=== PATIENT | male | born 1935 | race Caucasian/White ===

== ENCOUNTER 2017-05-21 11:19 | Day surgery (SDC) | payer MEDICARE, OTHER ==
--- NOTE | 2017-05-20 07:58 | HP ---
DATE OF SURGERY: 05/21/2017 ADMISSION DIAGNOSIS: Persistent hemorrhoids. ANTICIPATED PROCEDURE: Hemorrhoidectomy. HISTORY OF PRESENT ILLNESS: The patient has had hemorrhoids for about a year. He almost considered surgical intervention but they got a little better. He has been fighting these. He is basically refractory to medical care. He presents for hemorrhoidectomy. PAST MEDICAL HISTORY: ALLERGIES: NONE. MEDICATIONS: None. PAST SURGICAL HISTORY: Prostate. SOCIAL HISTORY: Negative. FAMILY HISTORY: Negative. REVIEW OF SYSTEMS: Negative. PHYSICAL EXAMINATION: VITAL SIGNS: Normal. CHEST: Clear. COR: Regular. IMPRESSION: Severe hemorrhoids refractory to care. PLAN: Hemorrhoidectomy.
[~2017-05-21 11:19] MED LIST: ANUSOL-HC 2.5% CREAM 30 GM ONE; DIPRIVAN 200 MG/20 ML IV ONE; Decadron 4 MG INJ IV ONE; Lactated Ringers 1,000 ML IV ONE; Lactated Ringers 1,000 ML IV SCH; MEFOXIN 2 GM PREMIX** 2 GM/50 ML ML IV ONE; Quelicin Fliptop 200 MG/10 ML IJ ONE; SUBLIMAZE 100 MCG/2 ML IV ONE; TORAdol 30 mg Injection IJ ONE; Zofran 4 MG/2 ML VIAL IV ONE
[2017-05-21] MEDS ORDERED: Lactated Ringers 1,000 ML IV ONE (11:32)
[2017-05-21] MEDS ORDERED: MEFOXIN 2 GM PREMIX** 2 GM/50 ML ML IV ONE (11:35)
[2017-05-21 15:31] VITALS: O2SAT 96
[2017-05-21 15:34] VITALS: BP 128/73; PULSE 59
--- NOTE | 2017-05-22 07:35 | OP ---
SURGERY DATE/TIME: 05/21/2017 1305 PREOPERATIVE DIAGNOSIS: Hemorrhoids persistent. POSTOPERATIVE DIAGNOSIS: Two internal hemorrhoids, three external hemorrhoids. There was an old fissure although it was mucosalized and grossly healed. PROCEDURE: Exam under anesthesia with open external hemorrhoidectomy x3, rubber band ligature internal hemorrhoids x2. SURGEON: Salo Castro M.D. ANESTHESIA: General. COMPLICATIONS: None. CONDITION: Stable. INDICATION: A patient requiring hemorrhoidectomy. DESCRIPTION OF PROCEDURE: Taken to surgery. Lithotomy. Routine prep and drape. Exam under anesthesia there was an old fissure at 6:00 which was mucosalized, was peeled. It was about 1/2 inch wide by 3/4 inch tall. There was external hemorrhoid on both sides of this taken with curved clamp and under and over suture #2-0 chromic catgut after the excess hemorrhoidal tissue had been excised. These two externals had been taken. There was an external at 11:00 that was taken openly and then there was two internals that were banded. The patient tolerated the procedure satisfactorily. Allowed two fingers at the termination and Exparel was injected 20 cc around the entire perimeter both to fistula and deep.
== END 2017-05-21 15:15 | disposition home or self-care (01) ==
LOC: SDC 11:19
PROVIDERS: ATTEND Surgery
PROC: 06LY4CC Occlusion of Hemorrhoidal Plexus with Extraluminal Device, Percutaneous Endoscopic Approach (ICD-10-PCS; principal; 2017-05-21)
PROC: 0DBQXZZ Excision of Anus, External Approach (ICD-10-PCS; 2017-05-21)
DX: K64.8 Other hemorrhoids (principal); K64.4 Residual hemorrhoidal skin tags
CPT/HCPCS: 00902; 36415; 46221; 88304; 99100; J0330; J0694; J1100; J1885; J2405; J2704; J3010; A9270-GY

== ENCOUNTER 2018-01-07 08:53 | Emergency (ER) | payer MEDICARE, OTHER ==
[2018-01-07] MEDS ORDERED: Sodium Chloride 0.9% 1000 ML 1,000 ML IV SCH (09:15)
--- NOTE | 2018-01-07 09:20 | ERPHSYRPT ---
- History of Present Illness Time Seen by Provider: 01/07/18 09:14 Historian: patient Exam Limitations: no limitations Patient Subjective Stated Complaint: PT REPORTS ABD CRAMPING ET PAIN ALL NIGHT- REPORTS LAST BM YESTERDAY EVENING NORMAL IN NATURE Triage Nursing Assessment: PT ALERT-RESP EASY ET NONLABORED-ABD SOFT ET NONTENDER TO PALP-BOWEL SOUNDS HYPOACTIVE Physician History: 82-year-old white male arrives with complaint of a lower abdominal pain symptoms since last night positive nausea no vomiting no diarrhea. Past medical history includes high blood pressure, diverticulosis, GERD, polyps , prostate cancer, prostate problems, arthritis, degenerative disc disease, osteoarthritis, kidney problems. Past surgical history includes joint replacement, orthopedic surgery, left shoulder surgery, partial left knee replacement Timing/Duration: yesterday Activities at Onset: none Quality: cramping Abdominal Pain Onset Location: RLQ, LLQ, suprapubic Pain Radiation: no radiation Severity of Pain-Max: moderate Severity of Pain-Current: moderate Modifying Factors: Improves With: other (patient took 2 [place] tablets prior to arrival) Associated Symptoms: denies symptoms Previous symptoms: no prior history Allergies/Adverse Reactions: No Known Drug Allergies Allergy (Verified 01/07/18 09:00) Home Medications: Memantine HCl 5 mg [Namenda 5 MG] 10 mg PO BID 02/03/13 [History] Mu-Vits-Min Th/Lycopene/Lutein [Centrum Silver Tablet] 1 tablet PO DAILY [History] Aurora-3 Fatty Acids/Fish Oil [Fish Oil 1,000 mg Capsule] 1 tablet PO DAILY 06/11 [History] Atorvastatin Calcium [Lipitor] 40 mg PO DAILY 05/15/17 [History] Famotidine [Pepcid] 40 mg PO DAILY 05/15/17 [History] Hydrochlorothiazide 12.5 mg PO DAILY 05/15/17 [History] Losartan Potassium [Cozaar] 50 mg PO BID 05/15/17 [History] Mag Oxide/D3/Turmeric Rt Xt [Magnesium-Vit D3-Turmeric Cap] 1 each PO DAILY [History] Hx Tetanus, Diphtheria Vaccination/Date Given: Yes Hx Influenza Vaccination/Date Given: Yes Hx Pneumococcal Vaccination/Date Given: Yes Immunizations Up to Date: Yes - Review of Systems Constitutional: No Fever, No Chills Eyes: No Symptoms Ears, Nose, & Throat: No Symptoms Respiratory: No Cough, No Dyspnea Cardiac: No Chest Pain, No Edema, No Syncope Abdominal/Gastrointestinal: Abdominal Pain, Nausea, No Vomiting, No Diarrhea, No Constipation, No Hematemesis, No Hematochezia, No Melena, No Dysphagia, No Appetite Changes Genitourinary Symptoms: No Dysuria Musculoskeletal: No Back Pain, No Neck Pain Skin: No Rash Neurological: No Dizziness, No Focal Weakness, No Sensory Changes Psychological: No Symptoms Endocrine: No Symptoms All Other Systems: Reviewed and Negative - Past Medical History Pertinent Past Medical History: Yes Neurological History: Other ENT History: No Pertinent History Cardiac History: Hypertension Respiratory History: No Pertinent History Endocrine Medical History: Other Musculoskeletal History: Arthritis, Degenerative Disk Disease, Osteoarthritis GI Medical History: Diverticulosis, GERD, Polyps History: Other Psycho-Social History: No Pertinent History Male Reproductive Disorders: Prostate Cancer, Prostate Problems Other Medical History: notes bottom lip goes numb from time to time. Kidney problems, - Past Surgical History Past Surgical History: Yes Neuro Surgical History: No Pertinent History Cardiac: No Pertinent History Respiratory: No Pertinent History Gastrointestinal: No Pertinent History Genitourinary: No Pertinent History Musculoskeletal: Joint Replacement, Orthopedic Surgery Male Surgical History: Prostate Surgery Other Surgical History: lt shoulder, left knee partial replacement - Social History Smoking Status: Never smoker Exposure to second hand smoke: No Drug Use: none Patient Lives Alone: No - Nursing Vital Signs Nursing Vital Signs: Initial Vital Signs Pulse Rate 85 01/07/18 09:07 Respiratory Rate 18 01/07/18 09:07 Blood Pressure 138/74 01/07/18 09:07 Pain Scale Pain Intensity 8 - Physical Exam General Appearance: no apparent distress, alert Eye Exam: PERRL/EOMI, eyes nml inspection Ears, Nose, Throat Exam: normal ENT inspection, pharynx normal, moist mucous membranes Neck Exam: normal inspection, non-tender, supple, full range of motion Respiratory Exam: normal breath sounds, lungs clear, No respiratory distress Cardiovascular Exam: regular rate/rhythm, normal heart sounds Gastrointestinal/Abdomen Exam: soft, normal bowel sounds, tenderness ( suprapubic and left lower quadrant abdominal pain) Male Genitalia Exam: normal genitalia Back Exam: normal inspection, normal range of motion, No CVA tenderness, No vertebral tenderness Extremity Exam: normal inspection, normal range of motion, pelvis stable Neurologic Exam: alert, oriented x 3, cooperative, normal mood/affect, nml cerebellar function, sensation nml, No motor deficits Skin Exam: normal color, warm, dry SpO2 Interpretation: normal - Course Nursing assessment & vital signs reviewed: Yes - CT Exams Abdomen/Pelvis CT Interpretation: Discussed w/radiologist (CT abdomen and pelvis without contrast: Impression: 1. Distended gallbladder with no gallstone and distal common bile duct choledochal stone. also tiny new perihepatic fluid that may or may not be related. 2 stable diffuse colonic diverticulosis without diverticulitis 3. New small hiatal hernia. 4. new remote-appearing L2/L4 endplate fractures. 5. Stable old right pubic bone fracture. Also stable bilateral SI joint sclerotic/lytic lesions presumed degenerative. Again evidence for old granulomatous disease.) Ordered Tests: Active Orders 24 hr Category Date Time Status IV Insertion STAT Care 01/07/18 09:15 Active ABDOMEN AND PELVIS W/0 CONTRAS [CT] Stat Exams 01/07/18 09:15 Completed AMYLASE Stat Lab 01/07/18 09:00 Completed CBC W DIFF Stat Lab 01/07/18 09:00 Completed CMP Stat Lab 01/07/18 09:00 Completed LIPASE Stat Lab 01/07/18 09:00 Completed Manual Differential NC Stat Lab 01/07/18 09:00 Completed UA W/RFX UR CULTURE Stat Lab 01/07/18 09:15 Completed Medication Summary Generic Name Dose Route Start Last Admin Trade Name Freq PRN Reason Stop Dose Admin Sodium Chloride 1,000 mls @ 100 mls/hr 01/07/18 09:15 01/07/18 09:46 Sodium Chloride 0.9% 1000 Ml IV 02/06/18 09:14 100 mls/hr .Q10H XAVIER Administration Ondansetron HCl 4 mg 01/07/18 10:55 Zofran 4 Mg/2 Ml Vial IV 01/07/18 10:56 STAT ONE Discontinued Medications Generic Name Dose Route Start Last Admin Trade Name Freq PRN Reason Stop Dose Admin Morphine Sulfate 2 mg 01/07/18 10:43 01/07/18 10:47 Morphine Sulfate 2 Mg Inj IV 01/07/18 10:44 2 mg STAT ONE Administration Morphine Sulfate Confirm 01/07/18 10:46 Morphine Sulfate 2 Mg Inj Administered 01/07/18 10:47 Dose 2 mg .ROUTE .[facility] ONE Ondansetron HCl Confirm 01/07/18 10:52 Zofran 4 Mg/2 Ml Vial Administered 01/07/18 10:53 Dose 4 mg .ROUTE .[facility] ONE Lab/Rad Data: Laboratory Result Diagrams 01/07/18 09:00 01/07/18 09:00 Laboratory Results 01/07/18 01/07/18 01/07/18 Range/Units 09:15 09:00 09:00 WBC 17.3 H (4.0-10.5) K/mm3 RBC 3.76 L (4.1-5.6) M/mm3 Hgb 11.8 L (12.5-18.0) gm/dl Hct 36.9 L (42-50) % MCV 98.1 (78-100) fl MCH 31.3 (26-32) pg MCHC 32.0 (32-36) g/dl RDW 13.6 (11.5-14.0) % Plt Count 218 (150-450) K/mm3 MPV 10.1 H (6-9.5) fl Segmented Neutrophils 87 H (36.-66.) % Band Neutrophils 6 H (0.0-2.0) % Lymphocytes (Manual) 1 L (24-44) % Monocytes (Manual) 5 (0.0-12.0) % Basophils (Manual) 1 (0.0-1.0) % Differential Comment NORMAL Platelet Estimate NORMAL (NORMAL) Sodium 141 (136-145) mEq/L Potassium 3.9 (3.5-5.1) mEq/L Chloride 102 (98-107) mEq/L Carbon Dioxide 29.2 (21-32) mEq/L Anion Gap 13.4 (5-15) MEQ/L BUN 26 H (9-20) mg/dL Creatinine 1.49 H (0.55-1.30) mg/dl Estimated GFR 48 ML/MIN Glucose 133 H (70-110) MG/DL Calcium 8.9 (8.5-10.1) mg/dL Total Bilirubin 0.40 (0.2-1.0) mg/dL AST 29 (15-37) U/L ALT 28 (12-78) U/L Alkaline Phosphatase 76 (46-116) U/L Serum Total Protein 6.9 (6.4-8.2) gm/dL Albumin 3.3 L (3.4-5.0) g/dL Amylase 68 (25-115) U/L Lipase 125 (73-393) U/L Ur Collection Type VOID Urine Color YELLOW (YELLOW) Urine Appearance CLEAR (CLEAR) Urine pH 5.0 (5-6) Ur Specific [place] 1.020 (1.005-1.025) Urine Protein NEGATIVE (Negative) Urine Ketones NEGATIVE (NEGATIVE) Urine Blood NEGATIVE (0-5) Tello/ul Urine Nitrite NEGATIVE (NEGATIVE) Urine Bilirubin NEGATIVE (NEGATIVE) Urine Urobilinogen NORMAL (0-1) mg/dL Ur Leukocyte Esterase NEGATIVE (NEGATIVE) Urine Culture Reflexed NO (NO) Urine Glucose NEGATIVE (NEGATIVE) mg/dL Specimen Received 01/07/18 1025 - Progress Progress: improved Progress Note: 01/07/18 10:44 82-year-old white male arrives with complaint of lower abdominal pain now in the periumbilical region symptoms since last night no vomiting but nausea. Patient with elevated white count of 17,000 patient has a distended gallbladder with new gallstone in distal common bile duct choledochoal stone on CT abdomen I 've discussed the case with Dr. Esqueda he requests that the patient be referred to [facility] he feels the patient will most likely need to have an ERCP patient was initially not wanting pain medications daily and taken to [place] was prior to arrival he now states he is starting to have some crampy pain he is getting normal saline IV. Will give him morphine for pain. Call will be put out to [facility] one call service. 01/07/18 10:53 Patient is also given Zofran for nausea. I've discussed the case with Dr. Marrero, at [facility] he would like to discuss this with Dr. Nguyen. They will call back. 01/07/18 10:56 We received a call back from [facility] Dr. Marrero has accepted patient for transfer. - Departure Time of Disposition: 10:57 Departure Disposition: Transfer ([facility] Dr. Marrero) Clinical Impression: Abdominal pain Qualifiers: Abdominal location: periumbilical Qualified Code(s): R10.33 - Periumbilical pain Cholelithiasis Qualifiers: Cholelithiasis location: gallbladder and bile duct Cholecystitis presence: with cholecystitis Cholecystitis acuity: acute Biliary obstruction: without biliary obstruction Qualified Code(s): K80.62 - Calculus of gallbladder and bile duct with acute cholecystitis without obstruction Condition: Fair Critical Care Time: No Referrals: JESSIKA ESQUEDA MD [Primary Care Provider] -
[2018-01-07 09:28] LABS: Granulocyte Absolute (ANC) 15.54 (1.4-6.9); Hematocrit 36.9 % (42-50); Hemoglobin 11.8 gm/dl (12.5-18.0); Mean Cell Volume 98.1 fl (78-100); Mean Platelet Volume 10.1 fl (6-9.5); Platelet Count 218 K/mm3 (150-450); Red Blood Count 3.76 M/mm3 (4.1-5.6); Red Cell Distribution Width 13.6 % (11.5-14.0); White Blood Count 17.3 K/mm3 (4.0-10.5)
[2018-01-07 09:35] LABS: Mean Corpuscular Hemoglobin 31.3 pg (26-32)
[2018-01-07] MEDS ORDERED: Sodium Chloride 0.9% 1000 ML 1,000 ML ONE (09:39)
[2018-01-07 10:01] LABS: BAND 6 % (0.0-2.0); Basophil 1 % (0.0-1.0); Lymphocytes 1 % (24-44); Monocyte 5 % (0.0-12.0); Neutrophils 87 % (36.-66.); Total Cells Counted 100
[2018-01-07 10:02] LABS: Platelet Estimate NORMAL (NORMAL)
[2018-01-07 10:09] LABS: ALBUMIN 3.3 g/dL (3.4-5.0); ANION GAP 13.4 MEQ/L (5-15); BILIRUBIN,TOTAL 0.4 mg/dL (0.2-1.0); Carbon Dioxide 29.2 mEq/L (21-32); Creatinine 1 1.49 mg/dl (0.55-1.30); Potassium 3.9 mEq/L (3.5-5.1); Total Protein 6.9 gm/dL (6.4-8.2)
--- NOTE | 2018-01-07 10:10 | XRAY ---
Indication: Abdomen pain and cramping. Multiple contiguous axial images obtained through the abdomen and pelvis without contrast as ordered. Comparison: March 19, [address] pelvis exam July 23, 2017. Lung bases again demonstrates mild bibasilar dependent atelectasis, left base bleb and right infrahilar calcified nodes. New right lower lobe subsegmental atelectasis/scarring. No effusion. Heart is not enlarged. New small hiatal hernia. Noncontrasted stomach and bowel loops appear nonobstructed. Again mild diffuse scattered colonic fecal debris greatest in the ascending colon. There is also stable diffuse colonic diverticulosis without diverticulitis. Gallbladder is now moderately distended with new 1.5 cm gallstone near the neck of the gallbladder and 7 mm distal common bile duct stone. No abnormal biliary distention but there is new tiny anterior perihepatic fluid. No free air. Stable hepatic/splenic calcified granulomas. Stable left mid abdomen pelvic reservoir/catheters and previous prostatectomy. Remaining liver, pancreas, spleen, adrenal glands, kidneys, ureters, and bladder appear unremarkable for noncontrast exam. Again mild aortoiliac calcifications without AAA. Osseous structures demonstrates new remote-appearing L2/L4 superior endplate fractures with approximately 50% height loss. Stable bilateral SI joint sclerotic/lytic lesions presumed degenerative. Stable old right pubic bone fracture. Impression: 1. Distended gallbladder with new gallstone and distal common bile duct choledochal stone. Also new tiny perihepatic fluid that may or may not be related. 2. Stable diffuse colonic diverticulosis without diverticulitis. 3. New small hiatal hernia. 4. New remote-appearing L2/L4 endplate fractures. 5. Stable old right pubic bone fracture. Also stable bilateral SI joint sclerotic/lytic lesions presumed degenerative. 6. Again evidence for old granulomatous disease. CT DI 14.90
[2018-01-07 10:16] LABS: Calcium 8.9 mg/dL (8.5-10.1)
[2018-01-07 10:36] LABS: Appearance CLEAR (CLEAR); Bilirubin NEGATIVE (NEGATIVE); Blood NEGATIVE Ery/ul (0-5); Glucose NEGATIVE (NEGATIVE); Ketones NEGATIVE (NEGATIVE); Leukocyte Esterase NEGATIVE (NEGATIVE); Nitrite NEGATIVE (NEGATIVE); Protein,Urine Dip NEGATIVE (Negative); Urobilinogen NORMAL mg/dL (0-1)
[2018-01-07] MEDS ORDERED: MORPHINE SULFATE 2 MG INJ IV ONE (10:43)
[2018-01-07] MEDS ORDERED: MORPHINE SULFATE 2 MG INJ ONE (10:46)
[2018-01-07] MEDS ORDERED: Zofran 4 MG/2 ML VIAL ONE (10:52)
[2018-01-07] MEDS ORDERED: Zofran 4 MG/2 ML VIAL IV ONE (10:55)
[2018-01-07 11:08] VITALS: BP 116/66; PULSE 71; O2SAT 94
== END 2018-01-07 11:50 | disposition short-term general hospital (02) ==
LOC: ED 08:53
DX: K80.62 Calculus of gallbladder and bile duct with acute cholecystitis without obstruction (principal); I10 Essential (primary) hypertension; K21.9 Gastro-esophageal reflux disease without esophagitis; Z85.46 Personal history of malignant neoplasm of prostate
CPT/HCPCS: 36000; 36415; 74176; 80053; 81002; 82150; 83690; 85025; 96360; 96361; 96374; 96375; 99285; J2270; J2405

== ENCOUNTER 2018-06-17 10:34 | Day surgery (SDC) | payer MEDICARE, OTHER ==
--- NOTE | 2018-06-14 11:36 | HP ---
DATE OF SURGERY: 06/17/2018 ADMISSION DIAGNOSIS: ANTICIPATED PROCEDURE: Colonoscopy with balloon dilatation. HISTORY OF PRESENT ILLNESS: The patient had hemorrhoidectomy. He had fairly small petite anus and seems to have some stenosis. It was felt that endoscopic examination and balloon was in order. He presents for such. PAST MEDICAL HISTORY: ALLERGIES: NONE. MEDICATIONS: Multiple. PAST SURGICAL HISTORY: Prostate. Previous hemorrhoidectomy. SOCIAL HISTORY: Negative. FAMILY HISTORY: Negative. PHYSICAL EXAMINATION: VITAL SIGNS: Normal. CHEST: Clear. COR: Regular. IMPRESSION: Narrow anus consistent with stricture. PLAN: Colonoscopy and balloon dilatation.
[~2018-06-17 10:34] MED LIST changes: -ANUSOL-HC 2.5% CREAM 30 GM ONE; -DIPRIVAN 200 MG/20 ML IV ONE; -Decadron 4 MG INJ IV ONE; -MEFOXIN 2 GM PREMIX** 2 GM/50 ML ML IV ONE; -Quelicin Fliptop 200 MG/10 ML IJ ONE; -SUBLIMAZE 100 MCG/2 ML IV ONE; -TORAdol 30 mg Injection IJ ONE; -Zofran 4 MG/2 ML VIAL IV ONE
[2018-06-17] MEDS ORDERED: DIPRIVAN 200 MG/20 ML IV ONE (10:35)
[2018-06-17] MEDS ORDERED: Ketamine HCl 50 MG/ML IV ONE (10:35)
[2018-06-17] MEDS ORDERED: Lactated Ringers 1,000 ML IV ONE (13:12)
--- NOTE | 2018-06-17 13:41 | OP ---
SURGERY DATE/TIME: 06/17/2018 1300 PREOPERATIVE DIAGNOSIS: Symptoms of anal stricture on physical examination. 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 2) Some external hemorrhoidal tag. 3) Some residual internal hemorrhoids. 4) Severe diverticulosis sigmoid. PROCEDURES: 1) Balloon anal dilatation to size 40 to 50. 2) Colonoscopy complete to cecum. SURGEON: Salo Castro M.D. ANESTHESIA: MAC. COMPLICATIONS: None. CONDITION: Stable. INDICATION: A patient requiring evaluation. DESCRIPTION OF PROCEDURE: Taken to endoscopy. The gastroscope and the gastroscope balloon system was used and an anal stricture size 40 was dilated to size 50. At this time the regular scope could be placed. The regular scope was placed and advanced up the cecum. Base of the cecum, ileocecal valve, ascending, hepatic, transverse, splenic, descending was satisfactory. Sigmoid severe diverticulosis numbering in the 100's. Rectum satisfactory. Anal stricture had been dilated and appeared satisfactory. There was some moderate residual internal hemorrhoids. There was some external skin tags. The patient tolerated the procedure satisfactorily. Findings discussed with the in the waiting room.
[2018-06-17 14:37] VITALS: O2SAT 98
[2018-06-17 14:44] VITALS: BP 124/72; PULSE 58
== END 2018-06-17 14:25 | disposition home or self-care (01) ==
LOC: SDC 10:34
PROVIDERS: ATTEND Surgery
DX: K62.4 Stenosis of anus and rectum (principal); K64.4 Residual hemorrhoidal skin tags; K64.8 Other hemorrhoids; K57.30 Diverticulosis of large intestine without perforation or abscess without bleeding
CPT/HCPCS: 99100; C1726; J2704

== ENCOUNTER 2022-07-16 11:58 | Day surgery (SDC) | payer MEDICARE, OTHER ==
[2022-07-16] MEDS ORDERED: Depo-Medrol 40 MG/ML IM ONE (11:59)
[2022-07-16] MEDS ORDERED: Marcaine Mpf 0.5% Vial 30 Ml IJ ONE (11:59)
[2022-07-16] MEDS ORDERED: DIPRIVAN 200 MG/20 ML IV ONE (13:22)
[2022-07-16] MEDS ORDERED: Lactated Ringers 1,000 ML IV ONE (13:47)
--- NOTE | 2022-07-17 09:20 | XRAY ---
20 seconds fluoroscopy time in surgery for bilateral SI joint injections.
--- NOTE | 2022-07-17 15:04 | XRAY ---
Indication: Bilateral SI joint injection. Intraoperative fluoroscopy provided for 20 seconds. 5 digital spot images demonstrates posterior needle tips projecting over the left and right SI joints. Correlate with intraoperative findings/report.
== END 2022-07-16 13:44 | disposition home or self-care (01) ==
LOC: SDC-PAIN 11:58
PROVIDERS: ATTEND Psychiatry & Neurology Pain Medicine
DX: M46.1 Sacroiliitis, not elsewhere classified (principal); Z79.899 Other long term (current) drug therapy
CPT/HCPCS: 27096; 72202; 77002; G0260; 99100; J1030; J2704

== ENCOUNTER 2022-08-06 13:46 | Day surgery (SDC) | payer MEDICARE, OTHER ==
[2022-08-06] MEDS ORDERED: Depo-Medrol 40 MG/ML IM ONE (13:47)
[2022-08-06] MEDS ORDERED: LIDOCAINE HCL 2% 100 MG/5 ML IJ ONE (13:47)
[2022-08-06] MEDS ORDERED: DIPRIVAN 200 MG/20 ML IV ONE (15:46)
--- NOTE | 2022-08-06 16:29 | XRAY ---
Indication: Bilateral L4-S1 MBB. Intraoperative fluoroscopy provided for 8 seconds. Single digital spot image submitted for interpretation demonstrates posterior needle tips projecting over the expected left and right L4-S1 nerve roots. Correlate with intraoperative findings/report. Incidental L4-L5 kyphoplasty.
--- NOTE | 2022-08-06 16:31 | XRAY ---
8 seconds of fluoroscopy was used in surgery for a bilateral L4-S1 MBB.
[2022-08-06] MEDS ORDERED: Lactated Ringers 1,000 ML IV ONE (17:31)
== END 2022-08-06 16:05 | disposition home or self-care (01) ==
LOC: SDC-PAIN 13:46
PROVIDERS: ATTEND Psychiatry & Neurology Pain Medicine
DX: M47.816 Spondylosis without myelopathy or radiculopathy, lumbar region (principal); Z79.899 Other long term (current) drug therapy
CPT/HCPCS: 64493; 64494; 72020; 77002; J1030; J2704

== ENCOUNTER 2023-05-22 15:41 | Emergency (ER) | payer MEDICARE, OTHER ==
[2023-05-22 16:06] VITALS: BP 124/87; PULSE 92; O2SAT 96
--- NOTE | 2023-05-22 16:09 | ERPHSYRPT ---
- History of Present Illness Time Seen by Provider: 05/22/23 15:44 Source: patient Exam Limitations: no limitations Patient Subjective Stated Complaint: Pt stated that he went to see Dr. Barragan yesterday and they were supposed to call in some pain pills for his back and they haven't, pt had 2 pills left over from 14 pills given on the and states that he won't be able to make it through the weekend without it and the Pain Clinic was closed today Triage Nursing Assessment: Pt brought self to the ER, vitals wnl, rates back pain as 09/08, pt had been getting injections for his back and gets 2 norco daily, hx of back surgery, pulses normal, skin n/w/d, lays on a heat pad nightly, unsteady on his feet due to the pain Physician History: Patient here with chronic back pain. Patient states he has a long history of chronic back pain. Recently started seeing [place] [facility]. They started him on [place] as needed 2 weeks ago. Patient already ran through his [place] prescription of 14 [place]'s. Patient states that he went to see his pain management doctor yesterday and was prescribed more pain medication. However this prescription never went through. Therefore he has no more [place]. He he has no new falls no new trauma. No new red flag symptoms for back pain. No bladder or bowel dysfunction, fever, IV drug use. Allergies/Adverse Reactions: No Known Drug Allergies Allergy (Verified 05/22/23 16:06) Home Medications: Memantine HCl 5 mg [Namenda 5 MG] 10 mg PO BID 02/03/13 [History] Mu-Vits-Min Th/Lycopene/Lutein [Centrum Silver Tablet] 1 tablet PO DAILY 02/03/13 [History] Omeprazole 20 MG [Prilosec 20 mg] 10 mg PO DAILY 06/09/18 [History] Bicalutamide 50 mg PO DAILY 05/22/23 [History] Fexofenadine HCl [Tanisha Allergy] 180 mg PO DAILY 05/22/23 [History] Furosemide 40 mg [Lasix 40 MG] 40 mg PO DAILY 05/22/23 [History] Hydrocodone/Acetaminophen [Hydrocodone-Acetamin 5-325 mg] 1 tab PO BID 05/22/23 [History] Megestrol Acetate 20 mg PO DAILY 05/22/23 [History] Potassium Chloride [Klor-Con M20] 20 meq PO DAILY 05/22/23 [History] Tamsulosin HCl 0.4 mg [Flomax 0.4 MG] 0.4 mg PO DAILY 05/22/23 [History] Vibegron [Gemtesa] 75 mg PO DAILY 05/22/23 [History] hydroCHLOROthiazide [Hydrochlorothiazide] 12.5 mg PO DAILY 05/22/23 [History] Hx Tetanus, Diphtheria Vaccination/Date Given: Yes Hx Influenza Vaccination/Date Given: Yes Hx Pneumococcal Vaccination/Date Given: Yes Travel Risk - International Travel Have you traveled outside of the country in past 3 weeks: No - Coronavirus Screening Are you exhibiting any of the following symptoms?: No Close contact with a COVID-19 positive Pt in past 14-21 Days: No - Vaccine Status Have you recieved a Covid-19 vaccination: No - Review of Systems Constitutional: No Fever, No Chills Eyes: No Symptoms Ears, Nose, & Throat: No Symptoms Respiratory: No Cough, No Dyspnea Cardiac: No Chest Pain, No Edema, No Syncope Abdominal/Gastrointestinal: No Abdominal Pain, No Nausea, No Vomiting, No Diarrhea Genitourinary Symptoms: No Dysuria Musculoskeletal: Back Pain, No Neck Pain Skin: No Rash Neurological: No Dizziness, No Focal Weakness, No Sensory Changes Psychological: No Symptoms Endocrine: No Symptoms All Other Systems: Reviewed and Negative - Past Medical History Pertinent Past Medical History: Yes Neurological History: Other ENT History: No Pertinent History Cardiac History: High Cholesterol, Hypertension Respiratory History: No Pertinent History Endocrine Medical History: Other Musculoskeletal History: Arthritis, Degenerative Disk Disease, Osteoarthritis GI Medical History: Diverticulosis, GERD, Polyps History: Other Psycho-Social History: No Pertinent History Male Reproductive Disorders: Prostate Cancer, Prostate Problems Other Medical History: notes bottom lip goes numb from time to time. Kidney problems,legs pain and poor circulation - Past Surgical History Past Surgical History: Yes Neuro Surgical History: No Pertinent History Cardiac: No Pertinent History Respiratory: No Pertinent History Gastrointestinal: Cholecystectomy Genitourinary: No Pertinent History Musculoskeletal: Joint Replacement, Orthopedic Surgery Male Surgical History: Prostate Surgery Other Surgical History: lt shoulder, left knee partial replacement,back surgery, - Social History Smoking Status: Never smoker Exposure to second hand smoke: No Drug Use: none Patient Lives Alone: No - Nursing Vital Signs Nursing Vital Signs: Initial Vital Signs Temperature 97.0 F 05/22/23 15:51 Pulse Rate 92 H 05/22/23 15:51 Blood Pressure 124/87 05/22/23 15:51 O2 Sat by Pulse Oximetry 96 05/22/23 15:51 Pain Scale Pain Intensity 10 - Physical Exam General Appearance: no apparent distress, alert Eye Exam: PERRL/EOMI, eyes nml inspection Ears, Nose, Throat Exam: normal ENT inspection, TMs normal, pharynx normal, moist mucous membranes Neck Exam: normal inspection, non-tender, supple, full range of motion Respiratory Exam: normal breath sounds, lungs clear, No respiratory distress Cardiovascular Exam: regular rate/rhythm, normal heart sounds, normal peripheral pulses Gastrointestinal/Abdomen Exam: soft, normal bowel sounds, No tenderness, No mass Back Exam: normal inspection, normal range of motion, No CVA tenderness, No vertebral tenderness Extremity Exam: normal inspection, normal range of motion, other (No tenderness, no no deformity no step-offs) Neurologic Exam: alert, oriented x 3, cooperative, normal mood/affect, nml cerebellar function, nml station & gait, sensation nml, No motor deficits Skin Exam: normal color, warm, dry, No rash Lymphatic Exam: No adenopathy SpO2: 96 - Course Nursing assessment & vital signs reviewed: Yes Ordered Tests: Medication Summary Discontinued Medications Generic Name Dose Route Start Last Admin Trade Name Puneet PRN Reason Stop Dose Admin Hydrocodone Bitart/Acetaminophen 2 tab 05/22/23 16:33 Hydrocodone/Apap 5/325 1 Tab Tablet PO 05/22/23 16:34 STAT ONE Hydrocodone Bitart/Acetaminophen Confirm 05/22/23 16:38 Hydrocodone/Apap 5/325 1 Tab Tablet Administered 05/22/23 16:39 Dose 2 tab .ROUTE .STK-MED ONE - Progress Progress: improved Progress Note: 05/22/23 16:45 I did attempt to call patient's pain medication doctor. No answer there. Reviewing patient's medications he is only supposed to be taking the [place] as needed. Therefore, this daily dose does not make sense to me. However given the patient is in pain with known chronic disease we will give patient to oral [place] here to take home. He should call his PCP first thing in the morning. To ensure follow-up. I did also leave a message for his PCP so that they know patient was here. Again, no new red flag symptoms for back pain. Close follow- up Counseled pt/family regarding: diagnosis, need for follow-up - Departure Departure Disposition: Home Clinical Impression: Chronic back pain Condition: Stable Critical Care Time: No Referrals: JESSIKA ESQUEDA MD [Primary Care Provider] - Follow up/PCP as directed
[2023-05-22] MEDS ORDERED: NORCO 5/325 MG PO ONE (16:33)
[2023-05-22] MEDS ORDERED: NORCO 5/325 MG ONE (16:38)
== END 2023-05-22 16:47 | disposition home or self-care (01) ==
LOC: ED 15:41
DX: G89.29 Other chronic pain (principal); M54.9 Dorsalgia, unspecified; E78.5 Hyperlipidemia, unspecified; I10 Essential (primary) hypertension; Z79.891 Long term (current) use of opiate analgesic; Z79.899 Other long term (current) drug therapy; Z28.310 Unvaccinated for COVID-19
CPT/HCPCS: 99281; A9270-GY

== ENCOUNTER 2023-07-29 12:20 | Day surgery (SDC) | payer MEDICARE, OTHER ==
[2023-07-29] MEDS ORDERED: Depo-Medrol 40 MG/ML IM ONE (12:21)
[2023-07-29] MEDS ORDERED: BUPIVACAINE 0.5% VIAL IJ ONE (12:21)
[2023-07-29] MEDS ORDERED: DIPRIVAN 200 MG/20 ML IV ONE (14:09)
--- NOTE | 2023-07-29 15:05 | XRAY ---
Indication: Bilateral SI joint injection. Intraoperative fluoroscopy provided for 11 seconds. 4 digital spot image submitted for interpretation demonstrates posterior needle tip projecting over the left and right SI joint. Correlate with intraoperative findings/report. Incidental multiple pelvic surgical clips and vertebroplasty last lumbar segment.
[2023-07-29] MEDS ORDERED: Lactated Ringers 1,000 ML IV ONE (15:59)
--- NOTE | 2023-07-29 17:05 | XRAY ---
11 seconds of fluoroscopy was used in surgery for a bilateral sacroiliac joint injection.
== END 2023-07-29 14:36 | disposition home or self-care (01) ==
LOC: SDC-PAIN 12:20
PROVIDERS: ATTEND Psychiatry & Neurology Pain Medicine
DX: M46.1 Sacroiliitis, not elsewhere classified (principal); Z79.899 Other long term (current) drug therapy
CPT/HCPCS: 01992; 27096; 72202; 77002; 99100; G0260; J1030; J2704

== ENCOUNTER 2024-02-08 20:30 | Emergency (ER) | payer MEDICARE, OTHER ==
[2024-02-08 21:59] VITALS: PULSE 70; RESP 18; TEMP 98.1
[2024-02-08 23:14] VITALS: BP 138/80; O2SAT 94
--- NOTE | 2024-02-08 23:25 | ERPHSYRPT ---
- History of Present Illness Time Seen by Provider: 02/08/24 21:40 Source: patient Exam Limitations: no limitations Patient Subjective Stated Complaint: pt reports swelling to the right leg, denies pain, reports it has been swollen all winter and decided recently to have it checked out. pt had outpatient labs today and was called this evening and told he needed to present to the ED for a ultrasound of his right lower extremity. Triage Nursing Assessment: pt is aox3, afebrile, resps easy and non labored, cap refill < 3 seconds, radial pulses strong and equal, pt skin pink warm dry. moderate swelling noted to the RLE, edema is non pitting. pt pedal pulses strong and equal bilat, skin is intact. pt sensation and ROM intact, pt ambulatory with slow steady gait. Physician History: Patient is here with right leg swelling, pain, has been going on "all winter". Patient had a checked out by his nurse practitioner today. She ordered a D- dimer that came back positive. Therefore patient sent to the emergency depar tment for an emergency ultrasound tonight. Patient does not have any shortness of breath, tachycardia, chest pain. No other fevers chills signs or symptoms of infection. Does not have any bilateral leg swelling. No signs of infection Allergies/Adverse Reactions: No Known Drug Allergies Allergy (Verified 05/22/23 16:06) Home Medications: Memantine HCl 5 mg [Namenda 5 MG] 10 mg PO BID 02/03/13 [History] Mu-Vits-Min Th/Lycopene/Lutein [Centrum Silver Tablet] 1 tablet PO DAILY 02/03/13 [History] Omeprazole 20 MG [Prilosec 20 mg] 10 mg PO DAILY 06/09/18 [History] Bicalutamide 50 mg PO DAILY 05/22/23 [History] Fexofenadine HCl [Tanisha Allergy] 180 mg PO DAILY 05/22/23 [History] Furosemide 40 mg [Lasix 40 MG] 40 mg PO DAILY 05/22/23 [History] Hydrocodone/Acetaminophen [Hydrocodone-Acetamin 5-325 mg] 1 tab PO BID 05/22/23 [History] Megestrol Acetate 20 mg PO DAILY 05/22/23 [History] Potassium Chloride [Klor-Con M20] 20 meq PO DAILY 05/22/23 [History] Tamsulosin HCl 0.4 mg [Flomax 0.4 MG] 0.4 mg PO DAILY 05/22/23 [History] Vibegron [Gemtesa] 75 mg PO DAILY 05/22/23 [History] hydroCHLOROthiazide [Hydrochlorothiazide] 12.5 mg PO DAILY 05/22/23 [History] Hx Tetanus, Diphtheria Vaccination/Date Given: (unk) Hx Influenza Vaccination/Date Given: Yes Hx Pneumococcal Vaccination/Date Given: Yes Immunizations Up to Date: Yes Travel Risk - International Travel Have you traveled outside of the country in past 3 weeks: No - Coronavirus Screening Are you exhibiting any of the following symptoms?: No - Vaccine Status Have you recieved a Covid-19 vaccination: Yes Drug Abuse Program Coordinator: Moderna - Vaccination Dates Date of 2cond Vaccination (if applicable): unk - Past Medical History Pertinent Past Medical History: Yes Neurological History: No Pertinent History ENT History: No Pertinent History, Cataracts Cardiac History: No Pertinent History Respiratory History: Other Endocrine Medical History: No Pertinent History Musculoskeletal History: Degenerative Disk Disease, Fractures, Osteoarthritis GI Medical History: Diverticulosis, GERD, Polyps History: Other Psycho-Social History: No Pertinent History Male Reproductive Disorders: Prostate Cancer, Prostate Problems, Other Other Medical History: 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 urinary prothesis. CKD - sees Jose - Past Surgical History Past Surgical History: Yes Neuro Surgical History: No Pertinent History Cardiac: No Pertinent History Respiratory: No Pertinent History Gastrointestinal: Cholecystectomy Genitourinary: No Pertinent History Musculoskeletal: Joint Replacement, Orthopedic Surgery Male Surgical History: Prostate Surgery Other Surgical History: lt shoulder, left knee partial replacement,back surgery, - Social History Smoking Status: Never smoker Exposure to second hand smoke: No Drug Use: none Patient Lives Alone: No - Nursing Vital Signs Nursing Vital Signs: Initial Vital Signs Temperature 98.1 F 02/08/24 21:46 Pulse Rate 70 02/08/24 21:46 Respiratory Rate 18 02/08/24 21:46 Blood Pressure 153/73 02/08/24 21:46 O2 Sat by Pulse Oximetry 96 02/08/24 21:46 Pain Scale Pain Intensity 0 - Physical Exam SpO2 Interpretation: normal SpO2: 94 Comments: 02/08/24 23:52 Review of Systems Constitutional: Negative for fever. HENT: Negative for congestion. Respiratory: Negative for shortness of breath. Cardiovascular: Negative for chest pain. Gastrointestinal: Negative for abdominal pain. Genitourinary: Negative for dysuria. Musculoskeletal: Negative for back pain. Skin: Negative for rash. Neurological: Negative for headaches. Psychiatric/Behavioral: Negative for behavioral problems. All other systems reviewed and are negative. Physical Exam Vitals signs and nursing note reviewed. Constitutional: Appearance: Patient is well-developed. HENT: Head: Normocephalic and atraumatic. Eyes: Conjunctiva/sclera: Conjunctivae normal. Neck: Musculoskeletal: Normal range of motion. Trachea: No tracheal deviation. Cardiovascular: Rate and Rhythm: Normal rate. Pulmonary: Effort: Pulmonary effort is normal. No respiratory distress. Abdominal: Palpations: Abdomen is soft. Musculoskeletal: General: Right leg swelling. No obvious deformity, sensation intact, 2+ capillary refill, 2 point tactile discrimination intact. 5 out of 5 strength. Full range of motion without pain. Compartments are soft, nontender. Overlying skin shows no tenting, bruising, ecchymosis. Skin: General: Skin is warm and dry. Neurological/ Psychiatric: Mental Status: Mental status, behavior, interaction with environment is appropriate for patient's age and condition - Course Nursing assessment & vital signs reviewed: Yes Ordered Tests: Active Orders 24 hr Category Date Time Status Ultrasound Unilateral Extremities [VENOUS UNILAT/ Exams 02/08/24 22:31 Taken LIMITED EXTREMIT] [US] Stat - Progress Progress: improved Progress Note: 02/08/24 23:53 Right leg swelling. No signs of a pulmonary embolism. Leg is not red, erythematous. Minimal swelling compared to the left leg. Ultrasound was obtained tonight. Ultrasound read was via ballistic technician. She read it as negative. Plan for close follow-up with PCP. Patient may return here sooner for any new or changing symptoms. Counseled pt/family regarding: diagnosis, need for follow-up, rad results - Departure Departure Disposition: Home Clinical Impression: Right leg swelling Condition: Stable Critical Care Time: No Referrals: JESSIKA ESQUEDA MD [Primary Care Provider] - Follow up/PCP as directed Instructions: Lymphedema (DC)
--- NOTE | 2024-02-09 08:55 | XRAY ---
Indication: Right leg swelling. Elevated d-dimer. Two-dimensional sonogram and color Doppler imaging major venous vessels right leg performed. Comparison: None No thrombus seen in the examined deep venous vessels right leg including greater saphenous vein. Veins demonstrate normal compressibility. Venous waveforms are normal with and without augmentation. Impression: Right leg negative for DVT. Comment: Preliminary report was given.
== END 2024-02-08 23:52 | disposition home or self-care (01) ==
LOC: ED 20:30
DX: M79.89 Other specified soft tissue disorders (principal); R60.0 Localized edema
CPT/HCPCS: 93971; 99282